=== PATIENT | male | born 1990 | race Caucasian/White ===

== ENCOUNTER 2020-01-18 08:14 | Emergency (ER) | payer MEDICAID ==
[~2020-01-18] VITALS: Ht 165.1 cm; Wt 81.0 kg
[2020-01-18] MEDS ORDERED: SODIUM CHLORIDE 0.9% 1,000 ML IV ONE (11:39)
[2020-01-18] MEDS ORDERED: LORAZEPAM 2MG/ML CPJ IV ONE (11:45)
[2020-01-18] MEDS ORDERED: OLANZAPINE 10 MG/VIAL IM ONE (11:45)
[2020-01-18 11:50] LABS: BASOPHILS % 0.6 % (0.0-2.0); EOSINOPHILS % 1.5 % (0.0-5.0); HEMATOCRIT. 40.7 % (42.0-52.0); HEMOGLOBIN. 14.2 g/dL (14.0-18.0); LYMPHOCYTES % 13.7 % (20.0-50.0); MEAN CORPUSCULAR HEMOGLOBIN 30.2 pg (28.0-32.0); MEAN CORPUSCULAR VOLUME 86.4 fL (80.0-94.0); MEAN PLATELET VOLUME 7.8 fl (7.4-10.4); MONOCYTES % 8.7 % (2.0-8.0); NEUTROPHILS % 75.5 % (40.0-76.0); PLATELET 212 x1000/uL (130-400); RED BLOOD CELL COUNT 4.72 mill/uL (4.7-6.1); RED CELL DISTRIBUTION WIDTH 13.2 % (11.6-14.6)
[2020-01-18 11:58] LABS: CHLORIDE 111 mEq/L (98-107)
[2020-01-18 12:02] LABS: ETHANOL BLOOD < 10 mg/dL
[2020-01-18 12:20] LABS: CLARITY URINE CLEAR (CLEAR); COLOR URINE YELLOW (YELLOW); KETONES URINE TRACE (NEGATIVE); LEUKOCYTE ESTERASE URINE NEGATIVE (NEGATIVE); NITRITE URINE NEGATIVE (NEGATIVE); OCCULT BLOOD URINE NEGATIVE (NEGATIVE); PROTEIN URINE 1+ (NEGATIVE)
[2020-01-18 12:40] LABS: *AMPHETAMINES SCREEN URINE PRESUMTIVE POSITIVE (NEGATIVE); CANNABINOID URINE SCREEN PRESUMTIVE POSITIVE (NEGATIVE); PHENCYCLIDINE URINE SCREEN NEGATIVE (NEGATIVE)
[2020-01-18 12:41] LABS: *BARBITURATES SCREEN URINE NEGATIVE (NEGATIVE); *BENZODIAZEPINES SCREEN URINE NEGATIVE (NEGATIVE); *COCAINE SCREEN URINE NEGATIVE (NEGATIVE); METHADONE URINE SCREEN NEGATIVE (NEGATIVE); OPIATES URINE SCREEN NEGATIVE (NEGATIVE)
[2020-01-18 15:53] VITALS: BP 127/94
== END 2020-01-18 16:24 | disposition left against medical advice (07) ==
LOC: ER 08:18
DX: G92 Toxic encephalopathy (principal); T43.625A Adverse effect of amphetamines, initial encounter; Y92.9 Unspecified place or not applicable; F17.200 Nicotine dependence, unspecified, uncomplicated
CPT/HCPCS: 36415; 80053; 80305; 80307; 80320; 80329; 81003; 85025; 99283; J7030; G0480

== ENCOUNTER 2020-08-24 02:26 | Emergency (ER) | payer MEDICAID ==
[~2020-08-24] VITALS: Ht 182.9 cm; Wt 118.0 kg
[2020-08-24 02:32] VITALS: BP 130/90
== END 2020-08-24 02:40 | disposition left against medical advice (07) ==
LOC: ER 02:26
DX: Z53.21 Procedure and treatment not carried out due to patient leaving prior to being seen by health care provider (principal)
CPT/HCPCS: 93005; 99283

== ENCOUNTER 2020-11-29 05:12 | Emergency (ER) | payer MEDICAID ==
[~2020-11-29] VITALS: Ht 172.7 cm; Wt 113.4 kg
[2020-11-29] MEDS ORDERED: KETOROLAC 30MG/ML VIAL IV STA (06:15)
[2020-11-29] MEDS ORDERED: SODIUM CHLORIDE 0.9% 1,000 ML IV ONE (06:15)
[2020-11-29] MEDS ORDERED: ONDANSETRON HCL 4MG/2ML INJ IV ONE (06:15)
[2020-11-29 06:30] LABS: BASOPHILS % 0.4 % (0.0-2.0); EOSINOPHILS % 1.8 % (0.0-5.0); HEMATOCRIT. 38.1 % (42.0-52.0); HEMOGLOBIN. 13.1 g/dL (14.0-18.0); LYMPHOCYTES % 17.4 % (20.0-50.0); MEAN CORPUSCULAR HEMOGLOBIN 29.8 pg (28.0-32.0); MEAN CORPUSCULAR VOLUME 86.8 fL (80.0-94.0); MEAN PLATELET VOLUME 8.1 fl (7.4-10.4); MONOCYTES % 9.7 % (2.0-8.0); NEUTROPHILS % 70.7 % (40.0-76.0); PLATELET 212 x1000/uL (130-400); RED BLOOD CELL COUNT 4.39 mill/uL (4.7-6.1); RED CELL DISTRIBUTION WIDTH 13.8 % (11.6-14.6)
[2020-11-29 06:35] LABS: CHLORIDE 109 mEq/L (98-107)
[2020-11-29 06:38] LABS: INR 1.1; PROTHROMBIN TIME 11.5 sec (9.6-11.0)
[2020-11-29 06:40] LABS: ETHANOL BLOOD < 10 mg/dL
[2020-11-29 07:27] VITALS: BP 117/60
[2020-11-29] MEDS ORDERED: LOPERAMIDE HCL 2MG CAPSULE PO ONE (07:45)
== END 2020-11-29 07:57 | disposition left against medical advice (07) ==
LOC: ER 05:12
DX: R10.9 Unspecified abdominal pain (principal); R19.7 Diarrhea, unspecified; K64.4 Residual hemorrhoidal skin tags; F12.10 Cannabis abuse, uncomplicated; F15.10 Other stimulant abuse, uncomplicated
CPT/HCPCS: 36415; 74176; 80053; 80320; 83690; 85025; 85610; 93005; 96361; 96374; 96375; 99285; J1885; J2405; J7030; Z7610; G0480